=== PATIENT | male | born 1960 | race Caucasian/White ===

== ENCOUNTER 2024-07-10 07:25 | Emergency (ER) | payer BC, SELFPAY ==
[2024-07-10 07:29] VITALS: BP 135/79
[2024-07-10 07:30] VITALS: BP 135/79
[2024-07-10 07:35] VITALS: BMI 39.8
[2024-07-10 07:53] LABS: % Basophils 0.5 % (0-2); % Eosinophils 0.5 % (0-6); % Immature Granulocytes 0.6 % (0-0.5); % Lymphocytes 37.5 % (20.5-51.1); % Monocytes 7.9 % (1.7-9.3); Absolute Basophils 0.1 10^3/uL (0-0.2); Absolute Eosinophils 0.1 10^3/uL (0-0.7); Absolute Immature Granulocytes 0.1 10^3/uL (0-0.05); Absolute Lymphocytes 3.9 10^3/uL (1.2-3.4); Absolute Monocytes 0.8 10^3/uL (0.1-0.6); Absolute Neutrophils 5.4 10^3/uL (1.4-6.5); Hemoglobin 14.4 g/dL (13.0-18.0); Mean Corp Hgb Conc. 33.5 g/dL (33.0-37.0); Mean Corpuscular Hgb 30.4 pg (27.0-31.0); Mean Corpuscular Volume 90.9 fL (80.0-94.0); Mean Platelet Volume 9.8 fL (7.4-10.4); Nucleated Red Blood Cells % 0 % (-); Platelet Count 247 10^3/uL (130-400); Red Blood Cell Count 4.73 10^6/uL (4.70-6.10); Red Cell Dist. Width 11.9 % (11.5-14.5); White Blood Cell Count 10.3 10^3/uL (4.8-10.8)
[2024-07-10 08:00] VITALS: BP 145/80
[2024-07-10 08:07] LABS: ALT (SGPT) 45 U/L (0-50); AST (SGOT) 42 U/L (17-59); Albumin 4.8 g/dl (3.5-5.0); Alkaline Phosphatase 56 U/L (38-126); Blood Urea Nitrogen 17 mg/dl (9-20); Calcium 9.7 mg/dl (8.4-10.2); Carbon Dioxide 23 mmol/L (22-30); Chloride 103 mmol/L (98-107); Estimated Creatinine Clearance > 125 ml/min; Glucose 144 mg/dl (70-99); Potassium 4.6 mmol/L (3.5-5.1); Sodium 138 mmol/L (135-145); Total Bilirubin 0.9 mg/dl (0.2-1.3); Total Protein 7.5 g/dl (6.3-8.2); eGFR > 60.00
--- NOTE | 2024-07-10 08:11 | ED.GENMED ---
History of Present Illness
General
Chief Complaint: Dizziness
Source: patient and spouse
Time Seen by Provider: 07/10/24 07:55
History of Present Illness
History of Present Illness:
63yoM with a history of multiple sclerosis, hypertension, hyperlipidemia, and prediabetes presenting via EMS for evaluation of dizziness. Patient was in his normal state of health this morning and went for a walk with his . He was going to
take the trash out around 0630 when he had an abrupt onset of dizziness. He states the room was spinning violently. He also felt clammy and nauseous. He vomited about 3-4 times at home and had additional vomiting during EMS transport. The
dizziness is worse with head movement and improves if he is being still with his eyes closed. He denies any prior history of vertigo. Patient received 4mg IV Zofran prehospital. Patient is currently feeling much better and he is now able to move
his head without any dizziness. also states that his color seems much improved. Patient follows with [facility] for his MS. He saw his neurologist less than a week ago and all his lesions were stable. Patient has baseline paresthesias
in his right hand and weakness in the left leg. He denies any visual changes, headache, ear pain, tinnitus, hearing loss. No recent illnesses.
Phy Exam
General Physical Exam
General Presentation: well appearing and no apparent distress
General age: appears stated age
General Skin: warm and dry
General Habitus: normal
General Mental: alert
ENT Exam
ENT Exam: TM's normal and normocephalic
Eye Exam
Eye Exam: PERRL and EOMI
Pulmonary Exam
Pulmonary Exam: no respiratory distress
Neurological Exam
Neurological Exam: alert and other (CN 2-12 grossly intact. Negative drift x4. 4/5 strength in LLE which is baseline per patient. 5/5 strength in all other extremities. Normal finger to nose and heel to rubio bilaterally. )
[place] Coma Scale
Eye Opening: Spontaneous
Verbal Response: Oriented
Motor Response: Obeys Commands
GCS Total Score: 15
Skin Exam
Skin Exam: normal color and warm/dry
Psychiatric Exam
Psychiatric Exam: normal mood/affect
Course
Orders/Labs/Results
Orders:
Orders
07/10/24 07:29
ECG [Electrocardiogram (*1)] Urgent
Reason for Study: Vertigo / Dizzy
EKG- Treatment ONCE
07/10/24 07:38
CMP [Comprehensive Metabolic Panel] Urgent
Complete Blood Count/With Diff Urgent
07/10/24 08:11
CT Head W/o Iv Contrast Urgent
Comment:
Reason For Exam: dizziness
0.9% Sodium Chloride 1000 ml [Nss] 1,000 ml IV BOLUS
Pt Eval And Treat Urgent
Treatment: vestibular therapy
Activity Level: Out of Bed- Ad Christina
Abnormal Lab Results
07/10/24
07:38
Abs Immat Gran (auto) 0.1 H 10^3/uL
(0-0.05)
Absolute Lymphs (auto) 3.9 H 10^3/uL
(1.2-3.4)
Absolute Monos (auto) 0.8 H 10^3/uL
(0.1-0.6)
Immature Gran % 0.6 H %
(0-0.5)
Glucose 144 H mg/dl
(70-99)
07/10/24 07:38
07/10/24 07:38
Vital Signs
Initial and Last Documented VS:
Initial Vital Signs
Temp Pulse Resp BP Pulse Ox
97.7 F 63 20 135/79 100
07/10/24 07:29 07/10/24 07:29 07/10/24 07:29 07/10/24 07:29 07/10/24 07:29
Last Documented Vital Signs
Temp Pulse Resp BP Pulse Ox
97.7 F 65 20 144/76 100
07/10/24 07:29 07/10/24 10:15 07/10/24 10:15 07/10/24 10:15 07/10/24 10:15
MDM/Problems Addressed
Differential Diagnosis Includes:
63yoM here with dizziness. Abrupt onset at 0630. Feels like the room in spinning. Worse with head movement, better if being still. +N/v. No history of the same. Currently feeling much better. Hx of MS. He is afebrile and hemodynamically stable. He
is well appearing in no distress. No ataxia noted on exam. Differential diagnosis includes but is not limited to: BPPV, vestibular neuronitis, labyrinthitis, Meniere's, MS, less likely CVA as symptoms are improved and there is no ataxia on exam
Initial ED plan: Check CBC, CMP, EKG, and CT head. IV fluid bolus. Will consult PT for vestibular therapy.
*EKG
Interpreted by ED Provider?: Yes
EKG Intrepretation Date: 07/10/24
Heart Rate: 61
Rate: normal
Rhythm: sinus
[place]: normal axis
Interval: normal interval
QRS Pattern: normal QRS
Ischemia: no ischemia
*Critical Care Note
Total Time (30-74mins, 75-104mins- exclusive of procedures): Not Applicable
Update Note
Update Note:
Labs overall unremarkable. EKG shows NSR without ischemic changes or ectopy. CT head is negative for acute findings. Patient evaluated by PT and vestibular testing is negative. On reassessment, he is completely asymptomatic and he is ambulating
without issue. No indication for hospitalization at this time. Doubt CVA/MS flare given resolution of symptoms. Prescriptions provided for Zofran and meclizine. Advised close f/u with PCP and neurology. ED return precautions discussed. He expressed
understanding and is agreeable to plan. He was discharged in stable condition.
ED Attending Note
-
Portions of this chart may have been created with voice recognition software.� Occasional wrong word or��sound alike� substitutions may have occurred due to the inherent limitations of voice recognition software.
Discharge Plan
Departure
Patient Disposition: Home (Routine Discharge)
Date of Disposition: 07/10/24
Time of Disposition: 10:13
Patient with high blood pressure during this ER visit?: Yes
Discharge Problem:
Vertigo
Instructions: Vertigo (a Type of Dizziness) (DC)
Prescriptions:
New
ondansetron 4 mg tablet,disintegrating
4 mg PO Q6H PRN (Reason: nausea and vomiting) Qty: 20 0RF
meclizine 25 mg tablet
25 mg PO QID PRN (Reason: dizziness) Qty: 20 0RF
Referrals:
Mino García PA-C [Family Provider] -
Activity Restrictions/Additional Instructions:
Take meclizine as needed for dizziness. Take Zofran as needed for nausea.
Please call your family doctor and neurologist today to schedule follow-up appointments. Return to the ER immediately with any new or worsening symptoms.
Interventions
Interventions:
*Risk Screen - Suicide Last Done: 07/10/24 07:29
*General Assessment Last Done: 07/10/24 07:35
*Neglect/Abuse Screening Last Done: 07/10/24 07:29
ED- Fall Risk Assessment Last Done: 07/10/24 07:47
*ED COVID-19 Vaccine History Last Done: 07/10/24 07:29
*Nursing Disposition Last Done: 07/10/24 10:24
ED- Neurological Assessment Last Done: 07/10/24 07:47
ED- Cardiac Assessment Last Done: 07/10/24 07:47
ED Swallowing Screen Last Done: 07/10/24 07:47
Discharge Date and Time
Discharge Date/Time: 07/10/24 10:24
Print Language: MALAGASY
[2024-07-10] MEDS: NSS 1000 IV (08:19)
[2024-07-10 09:00] VITALS: BP 141/77
[2024-07-10 10:15] VITALS: BP 144/76
== END 2024-07-10 10:24 | disposition home or self-care (01) ==
LOC: EMR 07:25
PROVIDERS: Emergency Medicine; EMERGENCY PHYSICIAN Emergency Medicine; FAMILY PHYSICIAN Physician Assistant Medical
DX: R42 Dizziness and giddiness (principal); I10 Essential (primary) hypertension; E78.00 Pure hypercholesterolemia, unspecified; R73.03 Prediabetes; G35 Multiple sclerosis
CPT/HCPCS: 99284; 96360; 70450; 80053; 85025; 93005